=== PATIENT | male | born 1980 | race Caucasian/White ===

== ENCOUNTER → 2017-02-11 | Outpatient (REF) | payer BC | LOC: M LAB REF 16:05 | PROVIDERS: ATTEND Nurse Practitioner Family | DX: M31.6 Other giant cell arteritis (principal) ==

== ENCOUNTER → 2017-06-04 | Outpatient (REF) | payer BC ==
[2017-06-04 13:54] LABS: INR 0.87
== END ==
LOC: M LAB REF 13:30
PROVIDERS: ATTEND Nurse Practitioner Family
DX: Z01.812 Encounter for preprocedural laboratory examination (principal)

== ENCOUNTER → 2017-12-17 | Outpatient (REF) | payer BC | LOC: M SMT 13:11 | DX: Z30.09 Encounter for other general counseling and advice on contraception (principal) | CPT/HCPCS: 88302 ==